=== PATIENT | female | born 1975 | race American Indian/Alaskan Native ===

== ENCOUNTER 2019-07-06 20:28 | Emergency (ER) | payer SELFPAY ==
[2019-07-06] MEDS ORDERED: cloNIDine 0.2 MG TAB PO ONE (22:47)
--- NOTE | 2019-07-06 23:05 | Emergency Department Report ---
ED General Adult HPI - General Chief complaint: High BP Stated complaint: HIGH BLOOD PRESSURE Source: patient Mode of arrival: Ambulatory Limitations: No Limitations - History of Present Illness Initial comments: Patient is a 43-year-old -[place] female with a history of hypertension and who is noncompliant with her blood pressure medication stating that she has not taken her blood pressure medications "for a while" after she ran out of them presents to the ED with complaint of persistent generalized weakness and fatigue and body aches with elevated blood pressure for the last 12 hours. Patient states that she went to the fire department and checked her blood pressure and was advised to come to the ED immediately because it was significantly elevated. Patient denies chest pain, headache, abdominal pain, nausea and vomiting, shortness of breath, dizziness, syncope, palpitations, fever, chills, cough, dysuria, urinary frequency and urgency and lightheadedness. MD Complaint: Generalized weakness and fatigue; elevated blood pressure -: Sudden, hour(s) (12) Location: head, back Radiation: non-radiation Severity scale (0 -10): 2 Quality: dull Consistency: constant Improves with: none Worsens with: none Associated Symptoms: denies other symptoms, loss of appetite, malaise. denies: confusion, chest pain, cough, diaphoresis, fever/chills, headaches, nausea/vomiting, rash, seizure, shortness of breath, syncope, weakness Treatments Prior to Arrival: none - Related Data Previous Rx's Medication Instructions Recorded Last Taken Type HYDROcodone/APAP 5-325 [[place] 1 - 2 each PO Q6HR PRN #10 tablet 03/14/15 Unknown Rx 5/325] Ibuprofen [Motrin 800 MG tab] 800 mg PO Q8HR PRN #20 tablet 03/14/15 Unknown Rx amLODIPine 5 mg PO DAILY #90 tab 03/14/15 Unknown Rx Lisinopril/Hydrochlorothiazide 1 each PO DAILY #30 tablet 07/07/19 Unknown Rx [Zestoretic 20-12.5 mg] amLODIPine 10 mg PO DAILY #30 tab 07/07/19 Unknown Rx cephALEXin [Keflex] 500 mg PO Q8HR #30 cap 07/07/19 Unknown Rx Allergies Allergy/AdvReac Type Severity Reaction Status Date / Time latex Allergy Hives Verified 07/06/19 20:45 tramadol HCl [From Ultram] Allergy Unknown Verified 03/14/15 18:24 ED Review of Systems ROS: Stated complaint: HIGH BLOOD PRESSURE Other details as noted in HPI Constitutional: malaise, other (Elevated blood pressure). denies: chills, fever Eyes: denies: eye pain, eye discharge, vision change ENT: denies: ear pain, throat pain Respiratory: denies: cough, shortness of breath, wheezing Cardiovascular: denies: chest pain, palpitations Endocrine: no symptoms reported Gastrointestinal: denies: abdominal pain, nausea, diarrhea Genitourinary: denies: urgency, dysuria, discharge Musculoskeletal: arthralgia, myalgia. denies: joint swelling Skin: denies: rash, lesions Neurological: denies: headache, weakness, paresthesias Psychiatric: denies: anxiety, depression Hematological/Lymphatic: denies: easy bleeding, easy bruising ED Past Medical Hx - Past Medical History Previous Medical History?: Yes Hx Hypertension: Yes - Surgical History Past Surgical History?: Yes Additional Surgical History: - Social History Smoking Status: Current Every Day Smoker Substance Use Type: None - Medications Home Medications: Home Medications Medication Instructions Recorded Confirmed Last Taken Type HYDROcodone/APAP 5-325 [[place] 1 - 2 each PO Q6HR PRN #10 tablet 03/14/15 Unknown Rx 5/325] Ibuprofen [Motrin 800 MG tab] 800 mg PO Q8HR PRN #20 tablet 03/14/15 Unknown Rx amLODIPine 5 mg PO DAILY #90 tab 03/14/15 Unknown Rx Lisinopril/Hydrochlorothiazide 1 each PO DAILY #30 tablet 07/07/19 Unknown Rx [Zestoretic 20-12.5 mg] amLODIPine 10 mg PO DAILY #30 tab 07/07/19 Unknown Rx cephALEXin [Keflex] 500 mg PO Q8HR #30 cap 07/07/19 Unknown Rx ED Physical Exam - General Limitations: No Limitations General appearance: alert, in no apparent distress - Head Head exam: Present: atraumatic, normocephalic, normal inspection - Eye Eye exam: Present: normal appearance, PERRL, EOMI Pupils: Present: normal accommodation - ENT ENT exam: Present: normal exam, normal orophraynx, mucous membranes moist, TM's normal bilaterally, normal external ear exam - Neck Neck exam: Present: normal inspection, full ROM. Absent: tenderness - Respiratory Respiratory exam: Present: normal lung sounds bilaterally. Absent: respiratory distress, wheezes, rales, rhonchi, stridor, chest wall tenderness, accessory muscle use, decreased breath sounds, prolonged expiratory - Cardiovascular Cardiovascular Exam: Present: regular rate, normal rhythm, normal heart sounds. Absent: systolic murmur, diastolic murmur, rubs, gallop - GI/Abdominal GI/Abdominal exam: Present: soft, normal bowel sounds. Absent: tenderness, guarding, rebound, hyperactive bowel sounds - Extremities Exam Extremities exam: Present: normal inspection, full ROM, normal capillary refill - Back Exam Back exam: Present: normal inspection, full ROM. Absent: tenderness, CVA tenderness (R), CVA tenderness (L), muscle spasm, paraspinal tenderness - Neurological Exam Neurological exam: Present: alert, oriented X3, CN II-XII intact, normal gait, reflexes normal - Psychiatric Psychiatric exam: Present: normal affect, normal mood - Skin Skin exam: Present: warm, dry, intact, normal color. Absent: rash ED Course Vital Signs 07/06/19 07/06/19 07/06/19 20:42 22:11 23:00 Temperature 98.9 F 98.5 F Pulse Rate 82 75 Respiratory 18 16 Rate Blood Pressure 189/110 216/92 211/87 Blood Pressure [Left] O2 Sat by Pulse 99 Oximetry 07/07/19 07/07/19 00:02 01:40 Temperature Pulse Rate Respiratory Rate Blood Pressure Blood Pressure 158/70 163/81 [Left] O2 Sat by Pulse Oximetry ED Medical Decision Making - Medical Decision Making This is a 43-year-old -[place] female with a history of hypertension and who is noncompliant with her blood pressure medication stating that she has not taken her blood pressure medications "for a while" after she ran out of them presents to the ED with complaint of persistent generalized weakness and fatigue and body aches with elevated blood pressure for the last 12 hours. Patient states that she went to the fire department and checked her blood pressure and was advised to come to the ED immediately because it was significantly elevated. In the ED, patient is alert and oriented x3 and is not in distress, fully interactive negative physical exam but hypertensive and afebrile in triage. Patient was treated with clonidine 0.2 mg p.o. x1 in the ED, and urinalysis showed significant urinary tract infection. On reevaluation, patient's vital signs improved significantly. Patient was discharged home on antibiotics for UTI and also had her blood pressure medications renewed. Patient was referred to the [facility] for follow-up in 7 to 10 days. Patient was advised return to the ED immediately if symptoms get worse. - Differential Diagnosis Hypertension; Anxiety; Muscle spasm; UTI Critical care attestation.: If time is entered above; I have spent that time in minutes in the direct care of this critically ill patient, excluding procedure time. ED Disposition Clinical Impression: Uncontrolled stage 2 hypertension, Acute urinary tract infection Disposition: TO HOME OR SELFCARE Is pt being admited?: No Does the pt Need Aspirin: No Condition: Stable Instructions: Urinary Tract Infection in Women (ED), Hypertension (ED) Additional Instructions: Take medication with food, drink plenty of fluids and follow-up with your primary care physician in 7 to 10 days for reevaluation. Return to the ED immediately if symptoms get worse. Prescriptions: amLODIPine 10 mg PO DAILY #30 tab cephALEXin [Keflex] 500 mg PO Q8HR #30 cap Lisinopril/Hydrochlorothiazide [Zestoretic 20-12.5 mg] 1 each PO DAILY #30 tablet Referrals: [facility] [Provider Group] - 3-5 Days Time of Disposition: 01:43 Print Language: PASHTO
[2019-07-07 01:14] LABS: Bilirubin,Urine NEG (Negative); Blood,Urine SM (Negative); Color,Urine Yellow (Yellow); Protein,Urine <15 mg/dL mg/dL (Negative); Urobilinogen,Urine < 2.0 mg/dL (<2.0)
[2019-07-07 13:39] VITALS: BP 163/81
== END 2019-07-07 02:04 | disposition home or self-care (01) ==
LOC: ED 20:28
DX: I10 Essential (primary) hypertension (principal); N39.0 Urinary tract infection, site not specified; F17.200 Nicotine dependence, unspecified, uncomplicated; Z79.899 Other long term (current) drug therapy
CPT/HCPCS: 81001; 87086; 99283